=== PATIENT | male | born 1950 | race Caucasian/White ===

== ENCOUNTER 2017-11-08 13:20 | Inpatient (IN) | payer OTHER ==
[~2017-11-08] VITALS: Ht 165.1 cm; Wt 106.2 kg
[~2017-11-08 13:20] MED LIST: ASPIR 8181 MG PO; FUROSEMIDE20 MG PO; FUROSEMIDE40 MG PO; GLIPIZIDE10 MG PO; IBUPROFEN; IBUPROFEN400 MG PO; IMDUR30 MG PO; ISOSORBIDE DN; L40 PO; LISINOPRIL40 MG PO; LOPRESSOR50 MG PO; MEDROL4 MG PO; MONTELUKAST SOD10 M1 PO; NIFEDIPINE ER60 MG PO; NOR10 PO; PROCARDIA XL90 MG PO; SUDOGEST30 MG PO; VENTOLIN H0.09 MG/A1; XARELTO10 M1 PO; XARELTO20 M1 PO; ZOC10 PO
[2017-11-08 14:50] LABS: PLATELET COUNT 171 x10^3mcL (130-400)
[2017-11-08 14:58] LABS: CALCIUM 8.1 mg/dL (8.5-10.1); CARBON DIOXIDE 24.7 mmol/L (21-32); CHLORIDE SERUM 101 mmol/L (98-107); GFR1 > 60 mL/min; GLUCOSE SERUM 139 mg/dL (74-106); POTASSIUM SERUM 3.9 mmol/L (3.5-5.1); SODIUM SERUM 136 mmol/L (136-145)
[2017-11-08 14:59] LABS: BASOPHIL % 0 % (0-2); RED CELL DISTRIBUTION WIDTH 15.7 % (11.5-14.5)
[2017-11-08 15:04] LABS: ALKALINE PHOSPHATASE 101 U/L (46-116); ALT/SGPT 41 U/L (16-63); AST/SGOT 29 U/L (15-37); BILIRUBIN TOTAL 0.8 mg/dL (0.20-1.00); TOTAL PROTEIN, SERUM 7.4 g/dL (6.4-8.2)
[2017-11-08 15:08] LABS: ALBUMIN 3.3 g/dL (3.4-5.0)
[2017-11-08 16:11] LABS: UA SPECIFIC GRAVITY 1.025 (1.005-1.035); microscopic required? YES; urine erythrocyte TRACE (NEGATIVE)
[2017-11-08 16:17] VITALS: BP 131/59
[2017-11-08 16:20] LABS: AMPHETAMINE QUAL UR NONE DETECTED (NEG <=1000)
[2017-11-08 16:22] LABS: MAGNESIUM 2.1 mg/dL (1.8-2.4); PHOSPHOROUS 2.9 mg/dL (2.5-4.9)
[2017-11-08 16:37] LABS: FREE T4 1.29 ng/dL (0.76-1.46); FREE THYROXINE INDEX 2.8 ug/dL (1.4-4.5); T4(THYROXINE) 7.5 ug/dL (4.7-13.3)
[2017-11-08 16:48] VITALS: BP 131/59
[2017-11-08 16:52] LABS: CHOLESTEROL/HDL RATIO 2.4
[2017-11-08 17:35] VITALS: BP 130/88
[2017-11-08 18:01] LABS: T3 TOTAL 0.86 ng/mL
[2017-11-08 20:15] VITALS: BP 133/63
[2017-11-09 04:45] VITALS: BP 102/73
[2017-11-09 07:14] LABS: BASOPHIL % 0.2 % (0-2); PLATELET COUNT 153 x10^3mcL (130-400)
[2017-11-09 08:35] LABS: RED CELL DISTRIBUTION WIDTH 15.4 % (11.5-14.5)
[2017-11-09 08:59] LABS: CALCIUM 8.1 mg/dL (8.5-10.1); CHLORIDE SERUM 103 mmol/L (98-107); CREATININE SERUM 1.1 mg/dL (0.7-1.3); GFR1 > 60 mL/min; GLUCOSE SERUM 164 mg/dL (74-106); MAGNESIUM 2.3 mg/dL (1.8-2.4); PHOSPHOROUS 3.8 mg/dL (2.5-4.9); POTASSIUM SERUM 3.6 mmol/L (3.5-5.1); SODIUM SERUM 138 mmol/L (136-145)
[2017-11-09 10:08] VITALS: BP 139/69
[2017-11-09 14:12] VITALS: BP 137/81
[2017-11-09 16:21] VITALS: BP 152/73
[2017-11-09 21:32] VITALS: BP 183/90
[2017-11-10 05:44] VITALS: BP 142/54
[2017-11-10 07:42] LABS: BASOPHIL % 0.4 % (0-2); PLATELET COUNT 162 x10^3mcL (130-400)
[2017-11-10 07:50] LABS: RED CELL DISTRIBUTION WIDTH 15.5 % (11.5-14.5)
[2017-11-10 07:54] LABS: CARBON DIOXIDE 25.3 mmol/L (21-32); CHLORIDE SERUM 100 mmol/L (98-107); CREATININE SERUM 1.1 mg/dL (0.7-1.3); GFR1 > 60 mL/min; GLUCOSE SERUM 169 mg/dL (74-106); PHOSPHOROUS 2.9 mg/dL (2.5-4.9); POTASSIUM SERUM 3.6 mmol/L (3.5-5.1); SODIUM SERUM 134 mmol/L (136-145)
[2017-11-10 09:59] VITALS: BP 133/51
[2017-11-10 13:27] VITALS: BP 143/66
[2017-11-10 17:29] VITALS: BP 156/73
[2017-11-10 21:52] VITALS: BP 160/73
[2017-11-10 22:46] VITALS: BP 156/76
[2017-11-11 05:58] VITALS: BP 142/64
[2017-11-11 06:22] LABS: BASOPHIL % 0.2 % (0-2); PLATELET COUNT 169 x10^3mcL (130-400)
[2017-11-11 06:30] LABS: RED CELL DISTRIBUTION WIDTH 15.4 % (11.5-14.5)
[2017-11-11 06:46] LABS: CALCIUM 8.4 mg/dL (8.5-10.1); CARBON DIOXIDE 24.1 mmol/L (21-32); CHLORIDE SERUM 104 mmol/L (98-107); CREATININE SERUM 0.9 mg/dL (0.7-1.3); GFR1 > 60 mL/min; GLUCOSE SERUM 148 mg/dL (74-106); PHOSPHOROUS 3.6 mg/dL (2.5-4.9); POTASSIUM SERUM 3.7 mmol/L (3.5-5.1); SODIUM SERUM 138 mmol/L (136-145)
[2017-11-11 09:42] VITALS: BP 152/69
[2017-11-11] MEDS ORDERED: FLO4 PO (11:28)
[2017-11-11 11:30] VITALS: BP 148/70
[2017-11-11] MEDS ORDERED: FER300 PO (11:30)
[2017-11-11] MEDS ORDERED: CLONIDINE HCL0.2 MG PO (11:32)
[2017-11-11] MEDS ORDERED: APR25 PO (11:33)
[2017-11-11] MEDS ORDERED: I5 PO (11:34)
[2017-11-11] MEDS ORDERED: NIT0.4 SL (11:34)
[2017-11-11] MEDS ORDERED: TRA100 PO (11:35)
[2017-11-11] MEDS ORDERED: NOR10 PO (11:36)
[2017-11-11] MEDS ORDERED: THERA TABS1 TAB PO (11:44)
[2017-11-11] MEDS ORDERED: MUCINEX600 MG PO (11:54)
[2017-11-11] MEDS ORDERED: LEVAQUIN750 MG PO (11:57)
[2017-11-11] MEDS ORDERED: LAC PO (11:58)
[2017-11-11] MEDS ORDERED: PULMICORT0.5 MG/2 M IH (12:08)
[2017-11-11] MEDS ORDERED: METFORMIN HCL1000 MG PO (12:11)
[2017-11-11 15:06] VITALS: BP 148/70
== END 2017-11-11 16:18 | disposition home or self-care (01) | DRG 291 ==
LOC: ED 13:20 → DU 14:43
PROVIDERS: Emergency Medicine; Family Medicine; Family Medicine Sports Medicine
DX: I50.43 Acute on chronic combined systolic (congestive) and diastolic (congestive) heart failure (principal); N17.0 Acute kidney failure with tubular necrosis; I71.02 Dissection of abdominal aorta; J44.1 Chronic obstructive pulmonary disease with (acute) exacerbation; D68.69 Other thrombophilia; J44.0 Chronic obstructive pulmonary disease with (acute) lower respiratory infection; E11.65 Type 2 diabetes mellitus with hyperglycemia; I11.0 Hypertensive heart disease with heart failure; J20.9 Acute bronchitis, unspecified; I48.91 Unspecified atrial fibrillation; N40.0 Benign prostatic hyperplasia without lower urinary tract symptoms; R80.9 Proteinuria, unspecified; E78.5 Hyperlipidemia, unspecified; I25.10 Atherosclerotic heart disease of native coronary artery without angina pectoris; Z79.82 Long term (current) use of aspirin; Z95.1 Presence of aortocoronary bypass graft; Z87.891 Personal history of nicotine dependence; Z68.38 Body mass index [BMI] 38.0-38.9, adult
CPT/HCPCS: 82962; 83880; 84439; 87804; 90658; J0696; J1644; J2543; J7030; J7613; J7620; J7626; J7644; Q0092; Q9967

== ENCOUNTER 2017-11-14 04:26 | Observation (INO) | payer OTHER ==
[~2017-11-14] VITALS: Ht 162.6 cm; Wt 104.0 kg
[~2017-11-14 04:26] MED LIST changes: +APR25 PO; +CLONIDINE HCL0.2 MG PO; +FER300 PO; +FLO4 PO; +I5 PO; +LAC PO; +LEVAQUIN750 MG PO; +METFORMIN HCL1000 MG PO; +MUCINEX600 MG PO; +NIT0.4 SL; +PULMICORT0.5 MG/2 M IH; +THERA TABS1 TAB PO; +TRA100 PO
[2017-11-14 11:08] LABS: UA SPECIFIC GRAVITY 1.025 (1.005-1.035); microscopic required? YES; urine erythrocyte 1+ (NEGATIVE)
[2017-11-14 11:42] LABS: BASOPHIL % 0.3 % (0-2); PLATELET COUNT 238 x10^3mcL (130-400)
[2017-11-14 11:43] LABS: RED CELL DISTRIBUTION WIDTH 15.3 % (11.5-14.5)
[2017-11-14 11:45] LABS: CALCIUM 8.9 mg/dL (8.5-10.1); CARBON DIOXIDE 21.4 mmol/L (21-32); CHLORIDE SERUM 95 mmol/L (98-107); GFR1 > 60 mL/min; GLUCOSE SERUM 216 mg/dL (74-106); POTASSIUM SERUM 5.3 mmol/L (3.5-5.1); SODIUM SERUM 128 mmol/L (136-145)
[2017-11-14 11:49] LABS: ALKALINE PHOSPHATASE 121 U/L (46-116); ALT/SGPT 39 U/L (16-63); AST/SGOT 48 U/L (15-37); BILIRUBIN TOTAL 0.85 mg/dL (0.20-1.00); LIPASE 83 IU/L (73-393); TOTAL PROTEIN, SERUM 7.9 g/dL (6.4-8.2)
[2017-11-14 11:50] LABS: ALBUMIN 3.2 g/dL (3.4-5.0)
[2017-11-14 14:07] VITALS: BP 173/98
[2017-11-14 14:10] LABS: AMPHETAMINE QUAL UR NONE DETECTED (NEG <=1000)
[2017-11-14 14:21] VITALS: BP 179/68
[2017-11-14] MEDS ORDERED: LANTUS SOLOS100 U/M1 SQ (15:39)
[2017-11-14 16:06] VITALS: BP 179/98
[2017-11-14 16:43] VITALS: BP 169/71
[2017-11-14 18:31] VITALS: BP 148/61
[2017-11-14 23:03] VITALS: BP 151/73
[2017-11-15 06:40] VITALS: BP 164/82
[2017-11-15 07:03] LABS: BASOPHIL % 0.4 % (0-2); PLATELET COUNT 225 x10^3mcL (130-400)
[2017-11-15 07:11] LABS: RED CELL DISTRIBUTION WIDTH 15.4 % (11.5-14.5)
[2017-11-15 07:16] LABS: CALCIUM 8.4 mg/dL (8.5-10.1); CHLORIDE SERUM 105 mmol/L (98-107); GFR1 > 60 mL/min; GLUCOSE SERUM 90 mg/dL (74-106); PHOSPHOROUS 2.6 mg/dL (2.5-4.9); POTASSIUM SERUM 3.5 mmol/L (3.5-5.1); SODIUM SERUM 141 mmol/L (136-145)
[2017-11-15 08:05] VITALS: BP 165/79
[2017-11-15 12:55] VITALS: BP 118/61
[2017-11-15 16:55] VITALS: BP 148/67
[2017-11-15 21:57] VITALS: BP 130/70
[2017-11-16 05:07] VITALS: BP 162/83
[2017-11-16 05:42] VITALS: BP 138/67
[2017-11-16 07:46] LABS: BASOPHIL % 0.4 % (0-2); PLATELET COUNT 241 x10^3mcL (130-400); RED CELL DISTRIBUTION WIDTH 14.7 % (11.5-14.5)
[2017-11-16 07:59] LABS: CALCIUM 8.4 mg/dL (8.5-10.1); CARBON DIOXIDE 29.1 mmol/L (21-32); CHLORIDE SERUM 104 mmol/L (98-107); GFR1 > 60 mL/min; GLUCOSE SERUM 94 mg/dL (74-106); MAGNESIUM 1.9 mg/dL (1.8-2.4); PHOSPHOROUS 2.9 mg/dL (2.5-4.9); POTASSIUM SERUM 3.7 mmol/L (3.5-5.1); SODIUM SERUM 139 mmol/L (136-145)
[2017-11-16 09:20] VITALS: BP 169/80
[2017-11-16 13:33] VITALS: BP 130/68
[2017-11-16] MEDS ORDERED: OMEPRAZOLE40 M1 PO (15:19)
[2017-11-16 17:00] VITALS: BP 130/68
== END 2017-11-16 18:51 | disposition home or self-care (01) | DRG 73 ==
LOC: ED 04:26 → DU 12:37
PROVIDERS: Emergency Medicine; Student in an Organized Health Care Education/Training Program
DX: E11.43 Type 2 diabetes mellitus with diabetic autonomic (poly)neuropathy (principal); I50.43 Acute on chronic combined systolic (congestive) and diastolic (congestive) heart failure; N17.0 Acute kidney failure with tubular necrosis; I71.00 Dissection of unspecified site of aorta; E87.1 Hypo-osmolality and hyponatremia; E44.1 Mild protein-calorie malnutrition; K31.84 Gastroparesis; I11.0 Hypertensive heart disease with heart failure; K21.9 Gastro-esophageal reflux disease without esophagitis; I25.10 Atherosclerotic heart disease of native coronary artery without angina pectoris; I48.2 Chronic atrial fibrillation; J44.9 Chronic obstructive pulmonary disease, unspecified; E11.65 Type 2 diabetes mellitus with hyperglycemia; E11.51 Type 2 diabetes mellitus with diabetic peripheral angiopathy without gangrene; E78.5 Hyperlipidemia, unspecified; Z79.84 Long term (current) use of oral hypoglycemic drugs; Z87.891 Personal history of nicotine dependence; Z95.1 Presence of aortocoronary bypass graft
CPT/HCPCS: 82962; 83880; 84439; G0378; J2405; J7030; Q0092